=== PATIENT | male | born 1955 | race Caucasian/White ===

== ENCOUNTER 2020-05-16 14:35 | Emergency (ER) | payer OTHER ==
[~2020-05-16] VITALS: Ht 185.4 cm; Wt 136.3 kg
--- NOTE | 2020-05-16 14:43 | ED Chest Pain ---
General Stated Complaint: CHEST PAIN; LT ARM PAIN Source: patient Exam Limitations: no limitations History of Present Illness Date Seen by Provider: May 16, 2020 Time Seen by Provider: 14:40 Initial Comments 64-year-old male presents with some mild chest discomfort. Reports his been going on for most the morning. He reports he had a mild radiation to his left arm and be evaluated. Patient does not have any nausea, vomiting, diaphoresis, shortness of breath. He reports the pain is almost subsided. Patient has a prior ablation history 2 with the last one about 3 weeks ago. He has never had a heart catheter. Patient took 1 baby aspirin around 2:30 just prior to arrival. Allergies and Home Medications Allergies Coded Allergies: lisinopril (Verified Adverse Reaction, Unknown, 05/16/20) Cough Patient Home Medication List Home Medication List Reviewed: Yes Review of Systems Review of Systems Constitutional: No chills, No diaphoresis, No fever, No malaise Respiratory: Denies Cough, Denies Shortness of Air, Denies SOA With Exertion Cardiovascular: Chest Pain; Denies Irregular Heart Rate, Denies Lightheadedness, Denies Palpitations, Denies Syncope Gastrointestinal: Denies Abdominal Pain, Denies Nausea, Denies Vomiting Genitourinary: Denies Burning Musculoskeletal: see HPI Skin: no symptoms reported Psychiatric/Neurological: No Symptoms Reported Endocrine: No Symptoms Reported Hematologic/Lymphatic: No Symptoms Reported Past Qbxpyts-Islxiw-Ljxbla Hx Past Med/Social Hx: Reviewed Nursing Past Med/Soc Hx Physical Exam Vital Signs Vital Signs - First Documented Capillary Refill : Height, Weight, BMI Height: '" Weight: lbs. oz. 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 Norm as Tested Skin: Normal Color, Warm/Dry Lymphatic: No Adenopathy Progress/Results/Core Measures Results/Orders Lab Results Laboratory Tests Test 05/16/20 14:45 Range/Units White Blood Count 7.0 4.3-11.0 10^3/uL Red Blood Count 4.67 4.35-5.85 10^6/uL Hemoglobin 14.1 13.3-17.7 G/DL Hematocrit 42 40-54 % Mean Corpuscular Volume 90 80-99 FL Mean Corpuscular Hemoglobin 30 25-34 PG Mean Corpuscular Hemoglobin Concent 34 32-36 G/DL Red Cell Distribution Width 12.7 10.0-14.5 % Platelet Count 242 130-400 10^3/uL Mean Platelet Volume 10.5 H 7.4-10.4 FL Neutrophils (%) (Auto) 74 42-75 % Lymphocytes (%) (Auto) 7 L 12-44 % Monocytes (%) (Auto) 14 H 0-12 % Eosinophils (%) (Auto) 4 0-10 % Basophils (%) (Auto) 1 0-10 % Neutrophils # (Auto) 5.2 1.8-7.8 X 10^3 Lymphocytes # (Auto) 0.5 L 1.0-4.0 X 10^3 Monocytes # (Auto) 1.0 0.0-1.0 X 10^3 Eosinophils # (Auto) 0.3 0.0-0.3 10^3/uL Basophils # (Auto) 0.0 0.0-0.1 10^3/uL Neutrophils % (Manual) 74 % Lymphocytes % (Manual) 9 % Monocytes % (Manual) 8 % Eosinophils % (Manual) 5 % Band Neutrophils 4 % Blood Morphology Comment NORMAL Prothrombin Time 15.4 H 12.2-14.7 SEC INR Comment 1.2 0.8-1.4 Activated Partial Thromboplast Time 33 24-35 SEC Sodium Level 138 135-145 MMOL/L Potassium Level 3.8 3.6-5.0 MMOL/L Chloride Level 102 98-107 MMOL/L Carbon Dioxide Level 26 21-32 MMOL/L Anion Gap 10 5-14 MMOL/L Blood Urea Nitrogen 13 7-18 MG/DL Creatinine 0.96 0.60-1.30 MG/DL Estimat Glomerular Filtration Rate > 60 BUN/Creatinine Ratio 14 Glucose Level 161 H 70-105 MG/DL Calcium Level 9.6 8.5-10.1 MG/DL Corrected Calcium 9.4 8.5-10.1 MG/DL Magnesium Level 1.7 1.6-2.4 MG/DL Total Bilirubin 0.4 0.1-1.0 MG/DL Aspartate Amino Transf (AST/SGOT) 38 H 5-34 U/L Alanine Aminotransferase (ALT/SGPT) 35 0-55 U/L Alkaline Phosphatase 92 40-136 U/L Myoglobin 64.9 10.0-92.0 NG/ML Troponin I < 0.30 <0.30 NG/ML Pro-B-Type Natriuretic Peptide 85.6 H <75.0 PG/ML Total Protein 8.1 6.4-8.2 GM/DL Albumin 4.2 3.2-4.5 GM/DL Lipase 29 8-78 U/L My Orders Orders - LEDBETTER,MARCELINO L DO Cbc With Automated Diff (05/16/20 14:44) Magnesium (05/16/20 14:44) Chest 1 View Ap/Pa Only (05/16/20 14:44) Ekg Tracing (05/16/20 14:44) Comprehensive Metabolic Panel (05/16/20 14:44) Myoglobin Serum (05/16/20 14:44) Protime With Inr (05/16/20 14:44) Partial Thromboplastin Time (05/16/20 14:44) Monitor-Rhythm Ecg Trace Only (05/16/20 14:44) Lipid Panel (05/17/20 06:00) Ed Iv/Invasive Line Start (05/16/20 14:44) Lipase (05/16/20 14:44) Troponin I Fs (05/16/20 14:44) Probnp Fs (05/16/20 14:44) Manual Differential (05/16/20 14:45) Vital Signs/I&O 05/16/20 05/16/20 14:35 14:35 Temp 37.0 Pulse 75 Resp 22 B/P (MAP) 170/81 (110) Pulse Ox 97 O2 Delivery Room Air Room Air Progress Progress Note : Time: 15:38 Progress Note Patient chest pain was greater than about 6 hours by the time he presented. With a negative troponin negative EKG unlikely cardiac in nature. Patient does have by basilar infiltrate on x-ray. Concern he has a possible early viral or atypical pneumonia. I will start him on azithromycin. I recommended he follow-up in a couple days with his primary care provider for repeat x-ray and recheck of his symptoms. He should return to the ER if symptoms worsen. Patient is stable and will be discharged home Initial ECG Impression Date: May 16, 2020 Initial ECG Impression Time: 14:35 Initial ECG Rhythm: Normal Sinus Initial ECG Intervals: Normal Initial ECG Impression: Normal Comment nsr, no acute changes Diagnostic Imaging Diagonstic Imaging: Xray Plain Films/CT/US/NM/MRI: chest Comments [facility]AltSchool [facility]. [place], [place] NAME: RUBIO NAM [facility] REC#: [id number] PT STATUS: REG ER : 1955 PHYSICIAN: MARCELINO LEDBETTER DO ADMIT DATE: 05/16/20/ER FS Draft Date of Exam:05/16/20 CHEST 1 VIEW AP/PA ONLY INDICATION: Chest pain. COMPARISON: 05/16/2020. FINDINGS: There is cardiomegaly. There are some patchy bibasilar infiltrates. There is no pleural effusion or pneumothorax. The mediastinum is unremarkable. IMPRESSION: Patchy bibasilar infiltrates. Cardiomegaly. Departure Impression Primary Impression: Pneumonia Qualified Codes: J18.9 - Pneumonia, unspecified organism Disposition: 01 HOME, SELF-CARE Condition: Stable Departure-Patient Inst. Referrals: SELFROULA MD (PCP/Family) Primary Care Physician Patient Instructions: Community-Acquired Pneumonia, Adult (DC) Add. Discharge Instructions: Follow-up with your primary care provider at the end of the week for recheck in today symptoms. Sooner if symptoms worsen. Return the ER as needed Scripts Azithromycin (Azithromycin) 250 Mg Tablet 250 MG PO UD, #6 TAB TAKE 2 TABLETS ON DAY ONE THEN TAKE 1 TABLET DAILY FOR FOUR MORE DAYS Prov: MARCELINO LEDBETTER DO 05/16/20 MARCELINO LEDBETTER DO May 16, 2020 14:43
[2020-05-16 15:12] LABS: BASOPHILS % (AUTO) 1 % (0-10); EOSINOPHILS # (AUTO) 0.3 10^3/uL (0.0-0.3); EOSINOPHILS % (AUTO) 4 % (0-10); HEMATOCRIT 42 % (40-54); HEMOGLOBIN 14.1 G/DL (13.3-17.7); LYMPHOCYTES # (AUTO) 0.5 X 10^3 (1.0-4.0); LYMPHOCYTES % (AUTO) 7 % (12-44); MEAN CORPUSCULAR HEMOGLOBIN 30 PG (25-34); MEAN CORPUSCULAR HGB CONC 34 G/DL (32-36); MEAN CORPUSCULAR VOLUME 90 FL (80-99); MEAN PLATELET VOLUME 10.5 FL (7.4-10.4); MONOCYTES % (AUTO) 14 % (0-12); NEUTROPHILS # (AUTO) 5.2 X 10^3 (1.8-7.8); NEUTROPHILS % (AUTO) 74 % (42-75); PLATELET COUNT 242 10^3/uL (130-400); RED CELL DISTRIBUTION WIDTH 12.7 % (10.0-14.5)
--- NOTE | 2020-05-16 15:15 | Diagnostic Imaging Report ---
INDICATION: Chest pain. COMPARISON: 05/16/2020. FINDINGS: There is cardiomegaly. There are some patchy bibasilar infiltrates. There is no pleural effusion or pneumothorax. The mediastinum is unremarkable. IMPRESSION: Patchy bibasilar infiltrates. Cardiomegaly. Dictated by: Dictated on workstation # [id number]
[2020-05-16 15:18] LABS: BUN/CREATININE RATIO 14; CALCIUM 9.6 MG/DL (8.5-10.1); CARBON DIOXIDE 26 MMOL/L (21-32); CHLORIDE 102 MMOL/L (98-107); CREATININE SERUM 0.96 MG/DL (0.60-1.30); GFR ESTIMATED > 60; GLUCOSE 161 MG/DL (70-105); INR 1.2 (0.8-1.4); MAGNESIUM 1.7 MG/DL (1.6-2.4); POTASSIUM 3.8 MMOL/L (3.6-5.0); PROTHROMBIN TIME PATIENT 15.4 SEC (12.2-14.7); SODIUM 138 MMOL/L (135-145)
[2020-05-16 15:19] LABS: ALANINE AMINOTRANSFERASE 35 U/L (0-55); ALBUMIN 4.2 GM/DL (3.2-4.5); ALKALINE PHOSPHATASE 92 U/L (40-136); BILIRUBIN,TOTAL 0.4 MG/DL (0.1-1.0); LIPASE 29 U/L (8-78); TOTAL PROTEIN 8.1 GM/DL (6.4-8.2)
[2020-05-16 15:35] LABS: BAND NEUTROPHILS 4 %; EOSINOPHILS % (MANUAL) 5 %; LYMPHOCYTES % (MANUAL) 9 %; MONOCYTES % (MANUAL) 8 %; NEUTROPHILS % (MANUAL) 74 %; RBC MORPH NORMAL
[2020-05-16] MEDS ORDERED: AZIT250T12 PO (15:41)
[2020-05-16 15:42] VITALS: BP 151/94
== END 2020-05-16 15:43 | disposition home or self-care (01) ==
LOC: ER FS 14:37
DX: J18.9 Pneumonia, unspecified organism (principal); Z88.8 Allergy status to other drugs, medicaments and biological substances
CPT/HCPCS: 36415; 71045; 80053; 83690; 83735; 83874; 83880; 84484; 85007; 85027; 85610; 85730; 93005; 93041

== ENCOUNTER 2022-04-24 14:13 | Emergency (ER) | payer OTHER ==
[~2022-04-24] VITALS: Ht 185.5 cm; Wt 132.9 kg
[~2022-04-24 14:13] MED LIST: AZIT250T12 PO
--- NOTE | 2022-04-24 14:32 | ED Abdominal Pain ---
General Stated Complaint: URINARY RETENTION Source of Information: Patient Exam Limitations: No Limitations History of Present Illness Date Seen by Provider: Apr 24, 2022 Time Seen by Provider: 14:16 Initial Comments 66-year-old male with past medical history of A. fib on blood thinners coming in due to lower abdominal distention and inability to urinate for roughly 12 hours. Has been having a slower stream for the past couple days but worsened today. Was started on Flomax today, but the discomfort is too much so wanted to come to the ER. Was also diagnosed with a UTI several days ago and is on an antibiotic. Has never had an issue like this before. The pain is constant, pressure-like pain in his lower abdomen which is worse with any type of touching his abdomen and better with rest. He is otherwise denying any other acute complaints including no fever. Allergies and Home Medications Allergies Coded Allergies: lisinopril (Verified Adverse Reaction, Unknown, 05/16/20) Cough Patient Home Medication List Home Medication List Reviewed: Yes Azithromycin (Azithromycin) 250 Mg Tablet, 250 MG PO UD Prescribed by: MARCELINO LEDBETTER on 05/16/20 1541 Review of Systems Review of Systems Constitutional: No fever EENTM: No Blurred Vision Respiratory: Denies Cough Cardiovascular: Denies Chest Pain Gastrointestinal: Abdomen Distended Genitourinary: No Symptoms Reported Musculoskeletal: no symptoms reported Skin: no symptoms reported Psychiatric/Neurological: No Symptoms Reported Endocrine: No Symptoms Reported Hematologic/Lymphatic: No Symptoms Reported All Other Systems Reviewed Negative Unless Noted: Yes Past Efalbcl-Fyexfu-Teocht Hx Patient Social History Tobacco Use?: No Seasonal Allergies Seasonal Allergies: No Past Medical History Surgeries: Yes (Lt TKR, Heart Ablation, ) Orthopedic Respiratory: No Cardiac: Yes Atrial Fibrillation, High Cholesterol, Hypertension Neurological: No Genitourinary: No Gastrointestinal: No Musculoskeletal: No Endocrine: Yes Diabetes, Non-Insulin dep HEENT: No Cancer: No Psychosocial: No Integumentary: No Blood Disorders: No Physical Exam Vital Signs Capillary Refill : Height/Weight/BMI Height: '" Weight: lbs. oz. kg; 39.00 BMI Method: General Appearance: WD/WN, no apparent distress HEENT: PERRL/EOMI, normal ENT inspection, pharynx normal Neck: non-tender, full range of motion, supple, normal inspection Respiratory: chest non-tender, lungs clear, normal breath sounds, no respiratory distress, no accessory muscle use Cardiovascular: regular rate, rhythm, no edema, no murmur Gastrointestinal: normal bowel sounds, soft, tenderness, other (fullness in the lower abdomen) Extremities: normal range of motion, non-tender, normal inspection, no pedal edema, no calf tenderness, normal capillary refill Back: normal inspection, no CVA tenderness Neurologic/Psychiatric: no motor/sensory deficits, alert, normal mood/affect Skin: normal color, warm/dry Lymphatic: no adenopathy Progress/Results/Core Measures Results/Orders My Orders Orders - AARON TAMAYO MD Catheter(Urinary) Insert & Ass 03,15 (04/24/22 14:28) Ua Culture If Indicated (04/24/22 14:28) Progress Progress Note : Progress Note 66-year-old male with above history coming in due to lower abdominal distention and difficulty urinating. ABCs were intact and vitals are stable on presentation. Physical exam with lower abdominal fullness and pain. I did a edevd-wf-atgd ultrasound after he attempted to urinate and he does have a full distended bladder. A Nane was placed and we will teach him how to take care of this. We will have him follow-up with urology. He was already started on Flomax. Urinalysis sent and culture pending. He is already on antibiotics. Departure Impression Primary Impression: Urinary retention Additional Impression: Anne catheter in place Disposition: 01 HOME, SELF-CARE Condition: Improved Departure-Patient Inst. Decision time for Depature: 14:50 Referrals: ROULA WATT MD (PCP) Primary Care Physician NEVA BOUCHER MD Patient Instructions: Urinary Retention, How to Care for Your Anne Catheter, Male Add. Discharge Instructions: Follow-up with Dr. Boucher to discuss getting your Anne out. Take the Flomax and finish your antibiotics as well AARON TAMAYO MD Apr 24, 2022 14:32
[2022-04-24 14:56] LABS: BILIRUBIN,URINE NEGATIVE (NEGATIVE); CLARITY,URINE CLEAR; COLOR,URINE YELLOW; GLUCOSE, URINE (UA) NEGATIVE (NEGATIVE); KETONES,URINE NEGATIVE (NEGATIVE); LEUKOCYTE ESTERASE ,URINE NEGATIVE (NEGATIVE); NITRITE,URINE NEGATIVE (NEGATIVE); PROTEIN,URINE NEGATIVE (NEGATIVE)
[2022-04-24 15:03] LABS: BACTERIA,URINE TRACE /HPF; RBC,URINE RARE /HPF; SQUAMOUS EPITHELIAL CELL,UR RARE /HPF
[2022-04-24 15:20] VITALS: BP 106/54
== END 2022-04-24 15:23 | disposition home or self-care (01) ==
LOC: EDUNIT# 14:13 → ER FS 14:16
DX: R33.9 Retention of urine, unspecified (principal); R10.30 Lower abdominal pain, unspecified; Z96.0 Presence of urogenital implants; Z28.310 Unvaccinated for COVID-19
CPT/HCPCS: 51702; 81000

== ENCOUNTER 2022-05-05 11:24 | Emergency (ER) | payer OTHER ==
[~2022-05-05] VITALS: Ht 185.5 cm; Wt 132.9 kg
[2022-05-05 11:54] LABS: BACTERIA,URINE TRACE /HPF; BILIRUBIN,URINE NEGATIVE (NEGATIVE); CLARITY,URINE CLEAR; COLOR,URINE YELLOW; GLUCOSE, URINE (UA) NEGATIVE (NEGATIVE); KETONES,URINE NEGATIVE (NEGATIVE); LEUKOCYTE ESTERASE ,URINE NEGATIVE (NEGATIVE); NITRITE,URINE NEGATIVE (NEGATIVE); PH,URINE 5.5 (5-9); PROTEIN,URINE NEGATIVE (NEGATIVE); RBC,URINE 0-2 /HPF; WBC,URINE RARE /HPF
--- NOTE | 2022-05-05 12:29 | ED GU-Male ---
General Chief Complaint: - Reproductive Stated Complaint: URINARY RETENTION Nursing Triage Note: Patient reports Dr. Acosta removed his solomon catheter on . He states he has been voiding only small amounts of urine since that time. He reports Dr. Acosta placed him on an antibiotic on . Source: patient, family Exam Limitations: no limitations History of Present Illness Date Seen by Provider: May 05, 2022 Time Seen by Provider: 11:37 Initial Comments 66-year-old male patient with history of hypertension, hyperlipidemia, diabetes mellitus, atrial fibrillation presented to ER with complaining of urinated a small amount of urine since last night and feeling of suprapubic pressure and pain. Patient was seen in this emergency room on 04/24/2022 with diagnosis of urinary retention and Solomon catheter was placed. Patient had Solomon catheter removal [address] Acosta and a new antibiotic was started but since last night was not able to empty his bladder completely and complaining of severe discomfort. Patient denies fever and chills and nausea and vomiting. Bladder scan at arrival of patient to ER showed almost 1000 mL of urine in his bladder. Allergies and Home Medications Allergies Coded Allergies: lisinopril (Verified Adverse Reaction, Unknown, 05/16/20) Cough Patient Home Medication List Home Medication List Reviewed: Yes Azithromycin (Azithromycin) 250 Mg Tablet, 250 MG PO UD Prescribed by: MARCELINO LEDBETTER on 05/16/20 1541 Review of Systems Review of Systems Constitutional: no symptoms reported EENTM: no symptoms reported Respiratory: no symptoms reported Cardiovascular: no symptoms reported Gastrointestinal: see HPI Genitourinary: see HPI Musculoskeletal: no symptoms reported Skin: no symptoms reported Psychiatric/Neurological: No Symptoms Reported Endocrine: No Symptoms Reported All Other Systemes Reviewed Negative Unless Noted: Yes Past Wzwtpqv-Spdrmc-Qgghys Hx Patient Social History Tobacco Use?: No Substance use?: No Alcohol Use?: No Pt feels they are or have been: No Immunizations Up To Date First/Initial COVID19 Vaccinat: Unknown Seasonal Allergies Seasonal Allergies: No Past Medical History Surgery/Hospitalization HX: A-fib; HTN; High Cholesterol; Left TKR; Heart Ablation Surgeries: Yes (Lt TKR, Heart Ablation, ) Orthopedic Respiratory: No Cardiac: Yes Atrial Fibrillation, High Cholesterol, Hypertension Neurological: No Genitourinary: No Gastrointestinal: No Musculoskeletal: No Endocrine: Yes Diabetes, Non-Insulin dep HEENT: No Cancer: No Psychosocial: No Integumentary: No Blood Disorders: No Physical Exam Vital Signs Vital Signs - First Documented 05/05/22 11:33 Temp 36.8 Pulse 70 Resp 18 B/P (MAP) 124/70 (88) Pulse Ox 98 O2 Delivery Room Air Capillary Refill : Less Than 3 Seconds Height, Weight, BMI Height: '" Weight: lbs. oz. kg; 38.00 BMI Method: General Appearance: moderate distress, obese Neck: non-tender Cardiovascular: regular rate, rhythm, no edema Respiratory: chest non-tender, lungs clear, normal breath sounds, no respiratory distress Gastrointestinal: normal bowel sounds, soft, guarding (Suprapubic) Back: normal inspection, no CVA tenderness Extremities: normal range of motion Neurologic/Psychiatric: no motor/sensory deficits, alert Skin: normal color Progress/Results/Core Measures Suspected Sepsis SIRS Temperature: Pulse: 70 Respiratory Rate: 18 Blood Pressure 124 /70 Mean: 88 Results/Orders Lab Results Laboratory Tests Test 05/05/22 11:45 Range/Units Urine Color YELLOW Urine Clarity CLEAR Urine pH 5.5 5-9 Urine Specific [place] 1.015 L 1.016-1.022 Urine Protein NEGATIVE NEGATIVE Urine Glucose (UA) NEGATIVE NEGATIVE Urine Ketones NEGATIVE NEGATIVE Urine Nitrite NEGATIVE NEGATIVE Urine Bilirubin NEGATIVE NEGATIVE Urine Urobilinogen 0.2 < = 1.0 MG/DL Urine Leukocyte Esterase NEGATIVE NEGATIVE Urine RBC (Auto) NEGATIVE NEGATIVE Urine RBC 0-2 /HPF Urine WBC RARE /HPF Urine Crystals NONE /LPF Urine Bacteria TRACE /HPF Urine Casts NONE /LPF Urine Mucus NEGATIVE /LPF Urine Culture Indicated NO My Orders Orders - SUE MONTENEGRO MD Bladder Scan (05/05/22 11:46) Ua Culture If Indicated (05/05/22 11:46) Catheter(Urinary) Insert & Ass 03,15 (05/05/22 11:46) Vital Signs/I&O 05/05/22 05/05/22 11:33 12:35 Temp 36.8 36.8 Pulse 70 67 Resp 18 18 B/P (MAP) 124/70 (88) 111/52 Pulse Ox 98 96 O2 Delivery Room Air Room Air Capillary Refill : Less Than 3 Seconds Blood Pressure Mean: 88 Progress Note : Progress Note Condition of patient in ER showed 66-year-old male patient with history of recent urinary presented to ER again because of urinary retention since last night. Bladder scan showed 970 mL of urine in his bladder and Solomon catheter was inserted with intermittent drainage of more than 900 mL of urine with improvement of his condition. UA was unremarkable. Patient currently taking antibiotic for UTI. Patient advised to follow-up urologist in 2 or 3 days and return to ER as needed. Departure Impression Primary Impression: Urinary retention Disposition: HOME, SELF-CARE Condition: Improved Departure-Patient Inst. Decision time for Depature: 12:28 Referrals: ROULA WATT MD (PCP) Primary Care Physician Patient Instructions: Urinary Retention, How to Care for Your Solomon Catheter, Male Add. Discharge Instructions: Follow-up with your urologist in 3 to 5 days Continue current antibiotic Return to ER as needed All discharge instructions reviewed with patient and/or family. Voiced understanding. SUE MONTENEGRO MD May 05, 2022 12:29
[2022-05-05 12:35] VITALS: BP 111/52
== END 2022-05-05 12:37 | disposition home or self-care (01) ==
LOC: EDUNIT# 11:24 → ER FS 11:25
DX: R33.9 Retention of urine, unspecified (principal); N39.0 Urinary tract infection, site not specified
CPT/HCPCS: 51702; 81000